=== PATIENT | male | born 1970 | race Caucasian/White ===

== ENCOUNTER 2017-03-23 17:26 | Emergency (ER) | payer OTHER ==
[~2017-03-23] VITALS: Ht 162.6 cm; Wt 70.3 kg
--- OUTSIDE RECORDS SUMMARY | 2017-03-23 17:40 | External Medical Summary Rpt ---
Author Author TANGELA Nuno, [employer] Organization [employer] Address Unknown Phone Unavailable
--- OUTSIDE RECORDS SUMMARY | 2017-03-23 17:40 | External Medical Summary Rpt | CCD ---
Demographics Preferred Language Latvian Marital Status Unknown Presybeterian Affiliation Unknown Race Unknown Ethnic Group Unknown Author Author , TANGELA HONEYCUTT Address Unknown Phone Immunization No patient found.
--- OUTSIDE RECORDS SUMMARY | 2017-03-23 17:40 | External Medical Summary Rpt | CCD ---
Author Author [employer] Organization [employer] Address Unknown Phone Unavailable Purpose Continuity of Care Document - through 2016
--- OUTSIDE RECORDS SUMMARY | 2017-03-23 17:40 | External Medical Summary Rpt | CCD ---
Author Author TANGELA Address Unknown Phone Purpose Continuity of Care Document - through 2016
--- OUTSIDE RECORDS SUMMARY | 2017-03-23 17:40 | External Medical Summary Rpt | CCD ---
Demographics Preferred Language Gibraltarian Marital Status Unknown Church Affiliation Unknown Race Unknown Ethnic Group Unknown Author Author , TANGELA HONEYCUTT Address Unknown Phone Immunization No patient found.
--- OUTSIDE RECORDS SUMMARY | 2017-03-23 17:40 | External Medical Summary Rpt | CCD ---
Author Author TANGELA Address Unknown Phone [email or web address] Purpose Continuity of Care Document - through 2016
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
[2017-03-23] MEDS ORDERED: D-10001 TAB PO (18:12)
[2017-03-23] MEDS ORDERED: FLEXERIL10 MG PO (18:12)
[2017-03-23] MEDS ORDERED: SENNA8.6 M1 PO (18:12)
[2017-03-23] MEDS ORDERED: FOLIC ACID 1MG T1 MG PO (18:12)
[2017-03-23] MEDS ORDERED: MIRALAX(PO17 GM/1 PA PO (18:13)
[2017-03-23] MEDS ORDERED: MINIPRESS1 M1 PO (18:14)
[2017-03-23] MEDS ORDERED: ETODOLAC200 MG PO (18:18)
[2017-03-23 18:29] VITALS: BP 122/88
== END 2017-03-23 18:30 | disposition home or self-care (01) ==
LOC: ER 17:26
DX: M79.652 Pain in left thigh (principal); R07.81 Pleurodynia; M25.552 Pain in left hip; Z87.891 Personal history of nicotine dependence